=== PATIENT | female | born 1985 | race Caucasian/White ===

== ENCOUNTER 2016-10-17 15:47 | Emergency (ER) | payer OTHER ==
[2016-10-17 16:01] VITALS: BP 126/83; BMI 33.4
[2016-10-17 16:22] LABS: BILIRUBIN,URINE NEGATIVE (NEGATIVE); BLOOD/HEMOGLOBIN,URINE NEGATIVE (NEGATIVE); GLUCOSE, URINE NEGATIVE (NEGATIVE); KETONES,URINE NEGATIVE (NEGATIVE); LEUKOCYTE ESTERASE ,URINE 2+ (NEGATIVE); NITRITES,URINE NEGATIVE (NEGATIVE); PROTEIN,URINE NEGATIVE (NEGATIVE); UROBILINOGEN,URINE NORMAL (NORMAL)
[2016-10-17 16:29] LABS: APPEARANCE,URINE HAZY (CLEAR); BACTERIA,URINE 2+ /HPF (NEGATIVE); COLOR,URINE YELLOW (YELLOW); RBC,URINE 0-3 /HPF (NEGATIVE); SQUAMOUS EPITHELIAL CELL,UR RARE /HPF (NEGATIVE)
== END 2016-10-17 17:14 | disposition home or self-care (01) ==
LOC: ER 16:00
DX: R10.84 Generalized abdominal pain (principal); Z3A.35 35 weeks gestation of pregnancy
CPT/HCPCS: 81001; 99284

== ENCOUNTER 2016-10-30 13:40 | Emergency (ER) | payer OTHER ==
[~2016-10-30 13:40] MED LIST: DIPRIVAN VIAL ONE; NEOSTIGMINE INJ ONE; NORCURON INJ 10 MG VIAL ONE; QUELICIN (OR ANECTINE) ONE; REGLAN INJ 10 MG VIAL ONE; ROBINUL ONE; SUPRANE IN ONE; VERSED ONE; XYLOCAINE 2 % (PLAIN) ONE; ZOFRAN INJ 4 MG VIAL ONE
[2016-10-30 13:44] VITALS: BP 120/73; BMI 33.4
[2016-10-30 14:20] LABS: BILIRUBIN,URINE NEGATIVE (NEGATIVE); BLOOD/HEMOGLOBIN,URINE NEGATIVE (NEGATIVE); GLUCOSE, URINE NEGATIVE (NEGATIVE); KETONES,URINE NEGATIVE (NEGATIVE); LEUKOCYTE ESTERASE ,URINE 3+ (NEGATIVE); NITRITES,URINE NEGATIVE (NEGATIVE); PH,URINE 6.5 (5.0 - 8.0); PROTEIN,URINE 1+ (NEGATIVE); UROBILINOGEN,URINE NORMAL (NORMAL)
[2016-10-30 14:28] LABS: APPEARANCE,URINE HAZY (CLEAR); COLOR,URINE YELLOW (YELLOW); RBC,URINE 0-2 /HPF (NEGATIVE)
[2016-10-30 14:29] LABS: BACTERIA,URINE TRACE /HPF (NEGATIVE); SQUAMOUS EPITHELIAL CELL,UR FEW /HPF (NEGATIVE)
[2016-10-30] MEDS ORDERED: D5LR 1000ML W PITOCIN 10 U/L 1,000 ML IV ONE (14:30)
[2016-10-30] MEDS ORDERED: D5 1/2 NS 1000 ML 1,000 ML IV ONE (14:31)
[2016-10-30] MEDS ORDERED: D5 1/2 NS 1000ML W PITOCIN 20 U/L 1,000 ML IV ONE (14:31)
[2016-10-30] MEDS ORDERED: PITOCIN ONE (14:31)
--- NOTE | 2016-10-30 14:31 | DR.PREG ---
HPI - PCP Primary Care Physician: ETELVINA - Chief Complaint Chief Complaint:: PT C/O LOWER ABD PAIN THAT STARTED ABOUT 1 HOUR AGO. PT STATES HER PAIN HAS BEEN COMING AND GOING. PT DENIES ANY FLUID LEAKING OR VAGINAL BLEEDING. PT STATES SHE WAS SEEN IN THE OFFICE THIS PAST TUESDAY AND WAS DIALATED 2CM. PT STATES SHE IS SUPPOSED TO BE AN INDUCTION ON November. - Source History Provided: Patient - Mode of Arrival Mode of Arrival: Wheelchair - Timing Onset of Chief Complaint: 10/30/16 PMH - PMH Past Medical History: No Past Surgical History: No - Family History History of Family Medical Conditions: Yes Family Medical History: Coronary Artery Disease - Social History Does any household member use tobacco: No Alcohol Use: None Do you use any recreational Drugs:: No Lives With: Family Lives Where: Home - infectious screening In the last 2 months have you had wt loss of >10#?: NO Have you had fever, night sweats or hemotysis?: No Have you traveled outside the country in the last 6 months?: No Isolation: Standard PE - Vital Signs Vitals: Temperature 98.3 F Pulse Rate 93 Respiratory Rate 20 Blood Pressure 120/73 O2 Sat by Pulse Oximetry 98 - Discharge Plan Condition: Stable - Follow ups/Referrals Follow ups/Referrals: [facility] [Primary Care Provider] - 3 days - Instructions
== END 2016-10-30 14:43 | disposition other institution (70) ==
LOC: ER 13:47
DX: R10.84 Generalized abdominal pain (principal); Z3A.00 Weeks of gestation of pregnancy not specified
CPT/HCPCS: 81001; 99284; A4216; A4222; J0330; J2001; J2250; J2405; J2590; J2710; J2765; J3490; J7042

== ENCOUNTER 2016-10-30 14:42 | Inpatient (IN) | payer OTHER ==
[2016-10-30] MEDS ORDERED: REGLAN INJ 10 MG VIAL IVP PRN ×3 (15:02→18:42)
[2016-10-30] MEDS ORDERED: PHENERGAN INJ 25 MG IV PRN ×3 (15:02→18:42)
[2016-10-30] MEDS ORDERED: PITOCIN 10 UNITS in D5 LR 1000 ML 1,000 ML IV PRN (15:02)
[2016-10-30] MEDS ORDERED: NUBAIN INJ 200 MG VIAL MULTIDOSE IVP PRN (15:02)
[2016-10-30] MEDS ORDERED: MORPHINE SULFATE INJ 2 MG IVP PRN (15:02)
[2016-10-30] MEDS ORDERED: PITOCIN IVP ONE (15:02)
[2016-10-30 15:30] LABS: BASOPHILS # (AUTO) 0.1 X10^3/uL (0.0-0.1); BASOPHILS % (AUTO) 0.7 % (0.2-1.0); EOSINOPHILS # (AUTO) 0.1 x10^3/uL (0.0-0.2); EOSINOPHILS % (AUTO) 0.7 % (0.9-2.9); HEMATOCRIT 33.6 % (36.0-47.0); HEMOGLOBIN 11.5 g/dL (12.0-16.0); LYMPHOCYTES % (AUTO) 20.6 % (21.0-51.0); MEAN CORPUSCULAR HEMOGLOBIN 33.2 pg (27.0-34.0); MEAN CORPUSCULAR HGB CONC 34.3 g/dL (33.0-35.0); MEAN PLATELET VOLUME 9.3 fL (7.4-11.0); MONOCYTES # (AUTO) 0.6 x10^3/uL (0.3-0.8); MONOCYTES % (AUTO) 5.9 % (0.0-13.0); NEUTROPHILS # (AUTO) 6.9 x10^3/uL (2.2-4.8); NEUTROPHILS % (AUTO) 72.1 % (42.0-75.0); PLATELET COUNT 255 X10^3/uL (150.0-450.0); RED BLOOD COUNT 3.46 X10^6/uL (3.5-5.4); RED CELL DISTRIBUTION WIDTH 13.1 % (11.6-16.5); WHITE BLOOD COUNT 9.6 X10^3/uL (3.6-10.0)
--- NOTE | 2016-10-30 15:30 | DR.OB ---
OB Quick Note - Assessment/Plan Assessment/Plan: L&D 10/30/16 at 3:20pm S-No complaint. O-Afebrile,VSS BDU=505 with good LTV, +accel, no decel. CTX=q 2-3 min., strong by palpation CVX=4cm/50%/0/VTX AROM with clear fluid. IUPC and FSE placed. A-IUP at 37 5/7 weeks in labor P-Begin pitocin augmentation if needed. Anticipate
[2016-10-30 15:35] LABS: BLOOD UREA NITROGEN 10 mg/dL (7-18); CALCIUM 8.5 mg/dL (8.5-10.1); CARBON DIOXIDE 21.4 mmol/L (21-32); CHLORIDE 104 mmol/L (98-107); COR NA(FOR HYPERGLY) 137 mmol/L (136-145); CREATININE 0.68 mg/dL (0.55-1.02); GLUCOSE 118 mg/dL (65-99); SODIUM 137 mmol/L (136-145); eGFR BLACK RACES > 60 (>60); eGFR NON BLACK RACES > 60 (>60)
[2016-10-30] MEDS ORDERED: D5 1/2 NS 1000 ML 1,000 ML IV SCH (16:00)
[2016-10-30] MEDS ORDERED: NUBAIN INJ 10 ONE (16:28)
[2016-10-30] MEDS ORDERED: MOTRIN TAB 800 MG PO PRN (17:12)
--- NOTE | 2016-10-30 17:12 | DR.OB ---
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 Head delivered over intact perineum. OP with nuchal cord x 1 (loose) reduced. Nose and mouth bulb suctioned. Body delivered over intact perineum. Cord clamped x 2 and cut. Infant handed to attendant. Cord sent for gases. Placenta delivered spontaneously / intact / 3 vessel cord. No CVX / vaginal / perineal tears. Viable male , VTX/OP, wt=5'15" and 9/9, stable to NBN. Mother stable to RR. ASS=[id number].
[2016-10-30] MEDS ORDERED: NS 50 ML IV + SPIKE MINIBAG* 50 ML IV ONE (17:23)
[2016-10-30] MEDS ORDERED: ANCEF VIAL 1 GM ONE (17:23)
[2016-10-30] MEDS ORDERED: BICITRA 30 ML PO ONE (17:31)
[2016-10-30] MEDS ORDERED: FENTANYL INJ 100 mcg ONE ×2 (17:42→18:06)
[2016-10-30] MEDS ORDERED: D5 1/2 NS 1000 ML 1,000 ML with PITOCIN 20 UNITS IV SCH ×2 (18:00)
[2016-10-30] MEDS ORDERED: D5 1/2 NS 1000ML W PITOCIN 20 U/L 1,000 ML IV ONE (18:07)
[2016-10-30] MEDS ORDERED: DILAUDID INJ IVP PRN (18:33)
[2016-10-30] MEDS ORDERED: BENADRYL INJ 50 MG VIAL IVP PRN (18:33)
[2016-10-30] MEDS ORDERED: PHENERGAN INJ 25 MG IVP PRN (18:33)
[2016-10-30] MEDS ORDERED: ZOFRAN INJ 4 MG VIAL IVP PRN (18:33)
[2016-10-30 18:35] LABS: BILIRUBIN,URINE NEGATIVE (NEGATIVE); BLOOD/HEMOGLOBIN,URINE NEGATIVE (NEGATIVE); GLUCOSE, URINE NEGATIVE (NEGATIVE); KETONES,URINE NEGATIVE (NEGATIVE); LEUKOCYTE ESTERASE ,URINE NEGATIVE (NEGATIVE); NITRITES,URINE NEGATIVE (NEGATIVE); PH,URINE 6.5 (5.0 - 8.0); PROTEIN,URINE NEGATIVE (NEGATIVE); UROBILINOGEN,URINE NORMAL (NORMAL)
[2016-10-30 18:36] LABS: APPEARANCE,URINE CLEAR (CLEAR); COLOR,URINE YELLOW (YELLOW)
[2016-10-30 18:37] LABS: BACTERIA,URINE NEGATIVE /HPF (NEGATIVE); RBC,URINE 0 /HPF (NEGATIVE); SQUAMOUS EPITHELIAL CELL,UR RARE /HPF (NEGATIVE)
[2016-10-30] MEDS ORDERED: PERCOCET TAB 5/325 MG PO PRN (18:40)
[2016-10-30] MEDS ORDERED: DILAUDID INJ ONE (18:41)
[2016-10-30] MEDS ORDERED: ADACEL TDaP IM ONE (18:42)
[2016-10-30] MEDS ORDERED: MYLICON TAB 80 MG CHEW PO PRN (18:42)
[2016-10-30] MEDS ORDERED: MILK OF MAGNESIA PO PRN ×2 (18:42)
[2016-10-30] MEDS ORDERED: AMBIEN PO PRN ×2 (18:42)
[2016-10-30] MEDS ORDERED: DERMOPLAST SPRAY TOP PRN (18:42)
[2016-10-30] MEDS: ZANTAC PO SCH (20:41)
[2016-10-31] MEDS ORDERED: D5 1/2 NS 1000 ML 1,000 ML with PITOCIN 20 UNITS IV SCH ×2 (02:00)
[2016-10-31] MEDS: MOTRIN TAB 800 MG PO PRN ×2 (02:32→10:34)
[2016-10-31 04:01] LABS: HEMATOCRIT 31.5 % (36.0-47.0); HEMOGLOBIN 10.7 g/dL (12.0-16.0)
[2016-10-31] MEDS: PRENATAL PLUS PO SCH (09:12)
[2016-10-31] MEDS: ZANTAC PO SCH ×2 (09:12→20:20)
[2016-10-31] MEDS ORDERED: PERCOCET TAB 5/325 MG PO PRN (09:24)
[2016-10-31] MEDS: BACTROBAN OINT TOP SCH ×2 (14:11→23:21)
[2016-11-01] MEDS: BACTROBAN OINT TOP SCH (05:45)
[2016-11-01] MEDS: ZANTAC PO SCH (08:51)
[2016-11-01] MEDS: PRENATAL PLUS PO SCH (08:51)
[2016-11-01 10:12] VITALS: BP 109/74
== END 2016-11-01 11:50 | disposition home or self-care (01) | DRG 767 ==
LOC: LD 14:42 → MED/SURG 18:36
PROVIDERS: ADMIT Specialist; ATTEND Specialist
PROC: 0UB70ZZ Excision of Bilateral Fallopian Tubes, Open Approach (ICD-10-PCS; 2016-10-30)
PROC: 3E0234Z Introduction of Serum, Toxoid and Vaccine into Muscle, Percutaneous Approach (ICD-10-PCS; 2016-10-30)
PROC: 10E0XZZ Delivery of Products of Conception, External Approach (ICD-10-PCS; principal; 2016-10-30 15:15)
DX: O80 Encounter for full-term uncomplicated delivery (principal); Z30.2 Encounter for sterilization; Z37.0 Single live birth; Z3A.37 37 weeks gestation of pregnancy
CPT/HCPCS: 36415; 59409; 80048; 81001; 85014; 85018; 85025; 86592; 86850; 86900; 86901; 99284; A4216; A4222; S0197; J0690; J1170; J2300; J2590; J3010; J7042

== ENCOUNTER 2017-05-20 17:12 | Emergency (ER) | payer SELFPAY ==
[2017-05-20 17:19] VITALS: BP 146/101; BMI 32.3
--- NOTE | 2017-05-20 17:37 | DR.GENAD ---
HPI - PCP Primary Care Physician: NONE - Complaint/Symptoms Chief Complaint Doctors Comments: Patient admits to sore throat since Tuesday ( five days ago). Denies vomiting or diarrhea. Admits to low grade temp. 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 Past Surgical History Comment: TUBES TIED - Family History History of Family Medical Conditions: Yes Family Medical History: Coronary Artery Disease - Social History Does patient currently use any type of tobacco product: No Have you used tobacco products in the last 12 months: No Type of Tobacco Use: None Does any household member use tobacco: No Alcohol Use: None Do you use any recreational Drugs:: No Lives With: Family Lives Where: Home - infectious screening In the last 2 months have you had wt loss of >10#?: NO Have you had fever, night sweats or hemotysis?: No Have you traveled outside the country in the last 6 months?: No Isolation: Standard ROS - Review of Systems Eyes: No Symptoms Reported ENTM: No Symptoms Reported Respiratoy: No Symptoms Reported Cardiovascular: No Symptoms Reported Gastrointestinal/Abdominal: No Symptoms Reported Genitourinary: No Symptoms Reported Neurological: No Symptoms Reported Musculoskeletal: No Symptoms Reported Integumentary: No Symptoms Reported Hematologic/Lymphatic: No Symptoms Reported Endocrine: No Symptoms Reported Psychiatric: No Symptoms Reported All Other Systems: Reviewed and Negative PE - Vital Signs Vitals: Temperature 98.1 F Pulse Rate 88 Respiratory Rate 18 Blood Pressure [Left Arm] 142/91 Blood Pressure 146/101 O2 Sat by Pulse Oximetry 100 - General General Appearance: Alert, In No Apparent Distress - Head Head Exam: Normal Inspection, Atraumatic - Eyes Eye exam: Normal Appearance, PERRL, EOMI - ENT ENT Exam: Normal Exam External Ear Exam: Normal External Inspection TM/Canal Exam: Bilateral Normal Nose Exam: Normal Nose Exam Mouth Exam: Normal Inspection Throat Exam: Normal Inspection - Neck Neck Exam: Normal Inspection, Tenderness (bilateral tender cervical adenopathy) - Chest Chest Inspection: Normal Inspection - Respiratory Respiratory Exam: Normal Lung Sounds Bilat Respiratory Exam: Bilateral Clear to Auscultation - Cardiovascular Cardiovascular Exam: Regular Rate, Normal Rhythm - Abdominal Exam Abdominal Exam: Normal Inspection Abdominal Tenderness: negative: RUQ, RLQ, LUQ, LLQ, Epigastrium, Suprapubic, Diffuse, Mild, Moderate, Severe, Other - Extremities Extremities Exam: Normal Inspection - Back Back Exam: Normal Inspection - Neurologic Neurological Exam: Alert, Oriented X3, CN II-XII Intact - Psychiatric Psychiatric Exam: Normal Affect - Skin Skin Exam: Warm, Dry, Intact Course - Treatment Treatment: Toradol 60mg, Pen G 1.2MU IM - Reevaluation 1st: Improved ROR - Labs Reviewed Laboratory Results Reviewed?: Yes (Strep positive) Laboratory: Streptococcus Screen Positive (NEGATIVE) A 05/20/17 17:47 - Diagnosis Discharge Problem: Strep pharyngitis - Discharge Plan Condition: Stable - Follow ups/Referrals Follow ups/Referrals: N[facility],None [Primary Care Provider] - 3 days - Instructions
[2017-05-20] MEDS ORDERED: TORADOL 60 MG VIAL IM ONE (18:02)
[2017-05-20] MEDS ORDERED: TORADOL 60 MG VIAL ONE (18:03)
[2017-05-20] MEDS ORDERED: BICILLIN L-A IM ONE ×2 (18:34→18:38)
== END 2017-05-20 18:45 | disposition home or self-care (01) ==
LOC: ER 17:23
DX: J02.0 Streptococcal pharyngitis (principal)
CPT/HCPCS: 87880; 96372; 99282; J0570; J1885